=== PATIENT | female | born 1945 | race Caucasian/White ===

== ENCOUNTER 2021-12-21 00:10 | Inpatient (IN) | payer BC, MEDICAID ==
[~2021-12-21] VITALS: Ht 152.4 cm; Wt 68.7 kg
[2021-12-21 00:10] VITALS: BP 157/59
--- NOTE | 2021-12-21 00:11 | NUR ---
Patient placed on bed 12.
[2021-12-21 02:07] LABS: BASOPHILS % (AUTO) 0.5 % (0.0-2.0); EOSINOPHILS # (AUTO) 0.2 K/uL (0-0.4); EOSINOPHILS % (AUTO) 2.4 % (0.0-4.0); HEMATOCRIT 21.7 % (36-48); LYMPHOCYTES # (AUTO) 1.4 K/uL (2.5-16.5); LYMPHOCYTES % (AUTO) 16.6 % (20.5-51.1); MEAN CORPUSCULAR HEMOGLOBIN 29 pg (27-31); MEAN CORPUSCULAR HGB CONC 32 g/dL (33-37); MEAN CORPUSCULAR VOLUME 91.6 fL (80-94); MONOCYTES # (AUTO) 0.8 K/uL (0.8-1.0); MONOCYTES % (AUTO) 10.1 % (1.7-9.3); NEUTROPHILS # (AUTO) 5.8 K/uL (1.8-7.7); NEUTROPHILS % (AUTO) 70.4 % (42.2-75.2); PLATELET COUNT (AUTO) 206 K/uL (140-450); RED BLOOD CELL COUNT(AUTO) 2.37 MIL/uL (4.20-5.40); RED CELL DISTRIBUTION WIDTH 18.8 % (11.6-13.7); WHITE BLOOD COUNT (AUTO) 8.2 K/uL (4.8-10.8)
[2021-12-21 02:24] LABS: ALBUMIN 1.6 g/dL (3.4-5.0); ANION GAP 12.1 (8-16); ASPARTATE AMINOTRANSFERASE 24 U/L (15-37); CHLORIDE 98 mmol/L (98-107); GLUCOSE 213 mg/dL (74-106); POTASSIUM 3.1 mmol/L (3.5-5.1); SODIUM SERUM 138 mmol/L (136-145); TOTAL BILIRUBIN 0.9 mg/dL (0.0-1.0); UREA NITROGEN, BLOOD 64 mg/dL (7-18)
[2021-12-21 02:43] LABS: LIPASE 103 U/L (73-393)
[2021-12-21] MEDS ORDERED: KCL 20 MEQ/WATER INJ PREMIX 100 ML IV ONE (02:50)
[2021-12-21] MEDS ORDERED: ASPIRIN 325 MG TAB PO ONE (02:50)
--- NOTE | 2021-12-21 04:04 | NUR ---
PT VOID FREELY INTO DIAPER. PT CHANGED, CLEANED, AND NEW DIAPER APPLIED.
--- NOTE | 2021-12-21 04:54 | NUR ---
Patient will be admitted to care of DR. WALLER. Admited to TELEMETRY. Will go to room 107A. Belongings list completed. Report to
[2021-12-21 05:15] VITALS: BP 160/73
--- NOTE | 2021-12-21 06:15 | NUR ---
PT ARRIVED FROM UNIT VIA GURNEY. RECEIVED BEDSIDE REPORT FROM ER NURSE JING. PT A&O X 2, ON ROOM AIR. BREATHING EQUAL AND UNLABORED.NO RESPIRATORY DISTRESS NOTED. IV ON R FA G22, PATENT AND INTACT. DENIES PAIN.SKIN DRY, INTACT AND WARM TO TOUCH. AFIB 92 ON TELE. MRSA SWAB DONE. SAFETY PRECAUTIONS IN PLACE. BED IN LOW LOCKED POSITION. CALL LIGHT WITHIN REACH.WILL CONTINUE TO MONITOR.
[2021-12-21] MEDS ORDERED: ONDANSETRON 4 MG/2 ML VIAL IVP PRN (06:20)
--- NOTE | 2021-12-21 06:36 | NUR ---
PT IS STABLE.NO ACUTE DISTRESS THROUGHOUT THE NIGHT. ALL NEEDS MET. NO DISTRESS NOTED. ALL PRECAUTIONS IN PLACE. CALL LIGHT WITHIN REACH. WILL ENDORSE TO AM SHIFT NURSE.
[2021-12-21 07:22] LABS: CREATINE KINASE MB 1.2 ng/mL (0-3.6)
--- NOTE | 2021-12-21 07:30 | NUR ---
RECEIVED REPORT FROM DISPATCHER SHIP PILOT NURSE. AOX2, ON ROOM AIR. BREATHING EQUAL AND UNLABORED. NO RESPIRATORY DISTRESS NOTED. IV ON R FA G22, PATENT AND INTACT. DENIES PAIN. SKIN DRY, INTACT AND WARM TO TOUCH. AFIB ON TELE. SAFETY PRECAUTIONS IN PLACE. BED IN LOW LOCKED POSITION. CALL LIGHT WITHIN REACH.WILL CONTINUE TO MONITOR.
[2021-12-21 08:00] VITALS: BP 175/81
--- NOTE | 2021-12-21 08:50 | NUR ---
PATIENT HAS BEEN SCREENED AND CATEGORIZED MODERATE NUTRITION RISK. PATIENT WILL BE SEEN WITHIN 3-5 [address] OF ADMISSION. [address]
--- NOTE | 2021-12-21 09:00 | NUR ---
BP 175/81, NOTIFIED LISETTE ZABALA. ORDERED HCTZ 25MG PO ONCE
[2021-12-21] MEDS ORDERED: hydroCHLOROthiazide 25 MG TAB PO SCH (09:30)
[2021-12-21] MEDS: LORazepam 2 MG/ML VIAL IVP PRN (09:50)
--- NOTE | 2021-12-21 09:50 | NUR ---
PT RESTLESS AND CRYING, FAMILY AT BEDSIDE, ATIVAN GIVEN ORDERED
[2021-12-21] MEDS ORDERED: FURO-570 PO (10:23)
[2021-12-21] MEDS ORDERED: ATOR10TA PO (10:23)
[2021-12-21] MEDS ORDERED: HYDR-1098 PO (10:23)
[2021-12-21] MEDS ORDERED: APIX2.5 PO (10:23)
[2021-12-21] MEDS ORDERED: ZAR2.5 PO (10:23)
[2021-12-21] MEDS ORDERED: LINA5TAB PO (10:23)
[2021-12-21] MEDS ORDERED: FERR325E14 PO (10:23)
[2021-12-21] MEDS ORDERED: ALBU1.25 NEB (10:23)
[2021-12-21] MEDS ORDERED: INSU100S22 SUBQ (10:25)
--- NOTE | 2021-12-21 10:50 | NUR ---
PT RESTING IN BED, SEEN AND EXAMINED BY DR JAIME
[2021-12-21 12:00] VITALS: BP 155/65
[2021-12-21] MEDS ORDERED: ALBUTEROL SULFATE NEB SCH (12:00)
[2021-12-21] MEDS: BLOOD GLUCOSE MONITORING 1 DEV DEV FS SCH ×3 (12:20→21:31)
[2021-12-21] MEDS: INSULIN LISPRO SLIDING SCALE 100 UNITS/ML VIAL SUBQ PRN (12:20)
--- NOTE | 2021-12-21 12:30 | NUR ---
SEEN BY KAYKAY ZABALA
[2021-12-21] MEDS ORDERED: ALBUTEROL 0.083% 2.5 MG/3 ML NEBU INH SCH (13:00)
[2021-12-21] MEDS: hydrALAZINE 25 MG TAB PO SCH ×2 (13:01→16:58)
--- NOTE | 2021-12-21 13:30 | NUR ---
SEEN AND EXAMINED BY DR DOMÍNGUEZ
[2021-12-21 13:34] LABS: APPEARANCE,URINE HAZY (CLEAR); BILIRUBIN,URINE NEGATIVE (NEGATIVE); BLOOD, URINE 2+ (NEGATIVE); COLOR,URINE YELLOW (YELLOW); LEUKOCYTE ESTERASE ,URINE 2+ (NEGATIVE); NITRITE, URINE NEGATIVE (NEGATIVE); PH,URINE 6.5 (5.0-9.0); UGLUCOSE NEGATIVE (NEGATIVE)
[2021-12-21 13:51] LABS: WBC,URINE 0-5 /HPF (0-5)
[2021-12-21 13:52] LABS: TRICHOMONAS,URINE None Seen /HPF (None Seen); YEAST,URINE None Seen /HPF (None Seen)
[2021-12-21 13:53] LABS: CALCIUM OXALATE CRYSTALS,UR None Seen /HPF (None Seen); COARSE GRANULAR CASTS,URINE None Seen /LPF (None Seen); FINE GRANULAR CASTS,URINE None Seen /LPF (None Seen); HYALINE CASTS, URINE None Seen /LPF (None Seen); OTHER CASTS, URINE None Seen /LPF (None Seen); OTHER CRYSTALS,URINE None Seen /HPF (None Seen); RED BLOOD CELL CASTS,URINE None Seen /LPF (None Seen); TRIPLE PHOSPHATE CRYSTAL,UR None Seen /HPF (None Seen); URIC ACID CRYSTALS,URINE None Seen /HPF (None Seen); URINE AMORPHOUS URATE None Seen /HPF (None Seen); WAXY CASTS,URINE None Seen /LPF (None Seen)
--- NOTE | 2021-12-21 14:23 | NUR ---
ED MANAGER AT BEDSIDE. PT APPEARS COMFORTABLE, NO SOB, NO C/O PAIN
[2021-12-21] MEDS ORDERED: ALBUTEROL 0.083% 2.5 MG/3 ML NEBU INH PRN (14:35)
[2021-12-21 16:00] VITALS: BP 149/68
--- NOTE | 2021-12-21 16:20 | NUR ---
DC PLANNIN YRS OLD FEMALE PATIENT WAS ADMITTED FROM HOME WITH A DX OF CHEST PAIN PATIENT HAS A HX OF HTN, DM, CKD A-FIB AND UNSPECIFIED CHF. TROPONIN ON ADMISSION 82, 86 . CXR SHOWED LARGE CARDIAC SILHOUETTE , MILD PULMONARY VASCULAR CONGESTION. RAPID COVID TEST NEGATIVE. ADMINISTERED IV ABX ROCEPHIN AND CONTINUED HOME MEDS. CONSULTED WITH CARDIO AND NEPHRO. DC PLAN PER PATIENT RESPOND TO THE TREATMENT. Addendum: 12/22/21 at 1634 by Denia Arellano RN DC PLANNING: SEEN BY BRAND AMBASSADOR PROMOTIONAL MODEL DR CHRISTIN Rico RECOMMENDED PATIENT IS NOT A GOOD CANDIDATE FOR FURTHER CARDIAC INTERVENTION, MEDICAL MANAGEMENT ONLY, HEAVY MEDIA OPERATOR TO CONTINUE CURRENT MEDS. DR DOMÍNGUEZ RECOMMENDED HOSPICE. FAXED TO [facility], SPOKE WITH PATIENT'S AND SON NINA STATED THEY WANT TO SPEAK WITH THEIR PRIMARY PHYSICIAN. CM TO FOLLOW Addendum: 12/23/21 at 1112 by Denia Arellano RN DC PLANNING: CALLED PATIENT'S SON [phone] SPOKE WITH NINA DISCUSSED THE DC PLAN FOR HIS MOM PER NINA, FAMILY DON'T WANT HER TO BE HOSPICE, SHE HAS AN APPOINTMENT WITH ONCOLOGIST DR MCDANIEL ON [address] SPOKE WITH JAMES HAYNES UPDATED PT'S CLINICAL. CM TO FOLLOW Addendum: 12/27/21 at 1113 by Denia Arellano RN DC PLANNIN UNIT PRBC GIVEN H/H 7.2/22.3, CONTINUE IV ABX ROCEPHIN. CARDIO AND NEPHRO FOLLOWING. AWAITING FOR ONCOLOGIST DR EDUARDO 'S RECOMMENDATION. DC PLAN TO GO HOME WITH HOME HEALTH WHEN STABLE . CM TO FOLLOW Addendum: 12/27/21 at 1440 by Denia Arellano RN DC PLANNING: DR OLIVEROS IN THE UNIT, STATED DR EDUARDO WON'T COME TO SEE PATIENT BUT HE RECOMMENDS TO FOLLOW UP WITH OUT PATIENT ONCOLOGIST. DR OLIVEROS SPOKE WITH PT'S SON NINA , EXPLAINED PT'S CLINICALS AND RECOMMENDATIONS, ANSWERED ALL QUESTIONS AND CONCERNS. NINA VERBALIZED UNDERSTANDING AND AGREED WITH DC HOME. PATIENT WILL BE DISCHARGED HOME. CALLED [facility] AND LEFT MESSAGE. CM TO FOLLOW Addendum: 12/27/21 at 1504 by Denia Arellano RN DC PLANNING: IM LETTER DISCUSSED WITH PT'S SON NINA VERBALIZED UNDERSTANDING AND TELEPHONE CONSENT SIGNED.
--- NOTE | 2021-12-21 17:35 | NUR ---
PT ASLEEP IN BE AT THIS TIME, NO SOB, NO S/S OF PAIN
--- NOTE | 2021-12-21 18:20 | NUR ---
PT AWAKE, CONFUSED, WITH EPISODES OF YELLING AND CRYING. PT WOULD CALM DOWN WHEN SPOKEN TO
--- NOTE | 2021-12-21 19:30 | NUR ---
RECEIVED BEDSIDE REPORT FROM DAY SHIFT RN FOR CONTINUITY OF CARE. PT IS AWAKE IN BED. PT IS NOT IN ANY DISTRESS. BREATHING EVEN AND UNLABORED. COMMUNICATION BOARD UPDATED. CALL LIGHT WITHIN REACH. ALL SAFETY MEASURES TAKEN. WILL CONTINUE TO MONITOR THE PT.
[2021-12-21 20:00] VITALS: BP 116/83
[2021-12-21] MEDS ORDERED: NON-FORMULARY ITEM (Insulin Glargine,Hum.rec.anlog (Lantus Solostar) 15 UNIT) SUBQ SCH (21:00)
[2021-12-21] MEDS: INSULIN LANTUS 100 UNITS/ML 10 ML VIAL SUBQ SCH (21:48)
[2021-12-21] MEDS: ATORVASTATIN 20 MG TAB PO SCH (21:49)
[2021-12-21] MEDS: APIXABAN 2.5 MG TAB PO SCH (21:49)
--- NOTE | 2021-12-21 21:55 | NUR ---
PT REFUSED PO MEDICATION. PT SAID TO THROW THEM AWAY. PT IS VERY CONFUSED. PT COOPERATED WITH TAKING LANTUS. WILL CONTINUE TO MONITOR THE PT.
[2021-12-22] VITALS: BP 127/46
[2021-12-22] MEDS: LORazepam 2 MG/ML VIAL IVP PRN (01:40)
--- NOTE | 2021-12-22 01:45 | NUR ---
PT WAS AGITATED. ATIVAN GIVEN. PT IS NOT IN ANY ACUTE DISTRESS. ALL SAFETY MEASURES TAKEN. WILL CONTINUE TO MONITOR THE PT.
--- NOTE | 2021-12-22 02:49 | NUR ---
PT IS SLEEPING COMFORTABLY IN BED. PT IS NOT IN ANY DISTRESS. BREATHING EVEN AND UNLABORED. CALL LIGHT WITHIN REACH. ALL SAFETY MEASURES TAKEN. WILL CONTINUE TO MONITOR THE PT
[2021-12-22 04:00] VITALS: BP 124/46
[2021-12-22] MEDS: BLOOD GLUCOSE MONITORING 1 DEV DEV FS SCH ×4 (06:42→20:33)
[2021-12-22 06:47] LABS: CARBON DIOXIDE 32.7 mmol/L (21-32); CHLORIDE 102 mmol/L (98-107); GLUCOSE 87 mg/dL (74-106); POTASSIUM 3.7 mmol/L (3.5-5.1); SODIUM SERUM 141 mmol/L (136-145); UREA NITROGEN, BLOOD 60 mg/dL (7-18)
[2021-12-22 06:53] LABS: BASOPHILS % (AUTO) 0.2 % (0.0-2.0); EOSINOPHILS # (AUTO) 0.1 K/uL (0-0.4); HEMATOCRIT 22.7 % (36-48); HEMOGLOBIN 7.2 g/dL (12.0-16.0); LYMPHOCYTES # (AUTO) 1.2 K/uL (2.5-16.5); LYMPHOCYTES % (AUTO) 12.5 % (20.5-51.1); MEAN CORPUSCULAR HEMOGLOBIN 29 pg (27-31); MEAN CORPUSCULAR HGB CONC 32 g/dL (33-37); MEAN CORPUSCULAR VOLUME 92.2 fL (80-94); MONOCYTES % (AUTO) 10.3 % (1.7-9.3); NEUTROPHILS # (AUTO) 7.5 K/uL (1.8-7.7); PLATELET COUNT (AUTO) 224 K/uL (140-450); RED BLOOD CELL COUNT(AUTO) 2.46 MIL/uL (4.20-5.40); RED CELL DISTRIBUTION WIDTH 18.9 % (11.6-13.7); WHITE BLOOD COUNT (AUTO) 9.9 K/uL (4.8-10.8)
[2021-12-22 07:01] LABS: CREATINE KINASE MB 1.1 ng/mL (0-3.6)
[2021-12-22 07:04] LABS: MAGNESIUM 2.1 mg/dL (1.8-2.4); PHOSPHORUS 3.4 mg/dL (2.5-4.9)
[2021-12-22] MEDS ORDERED: cefTRIAXone 1,000 MG VIAL ONE (07:16)
--- NOTE | 2021-12-22 07:20 | NUR ---
RECEIVED REPORT FROM REFERRAL NURSE NURSE FOR CONTINUITY OF CARE. PATIENT IS ASLEEP WITH IV SITE AT RIGHT FOREARM LUANNE 22 SALINE LOCK.. PATIENT ON ROOM AIR NO DISTRESS NOTED. CALL LIGHT WITH IN EASY REACH. PUREWICK IN PLACE. PATIENT CONFUSION. CALL LIGHT WITH IN EASY REACH. ALL SAFETY PRECAUTIONS IN PLACE.
--- NOTE | 2021-12-22 07:20 | NUR ---
ENDORSED PT TO DAY SHIFT RN FOR CONTINUITY OF CARE. PT IS STABLE.
[2021-12-22 08:00] VITALS: BP 117/75
--- NOTE | 2021-12-22 08:15 | NUR ---
RECEIVED CRITICAL LEVEL FOR TROPONIN OF [address] WALLER AWAITING FOR RESPONSE.
[2021-12-22] MEDS: FERROUS SULFATE 325 MG TABEC PO SCH (08:51)
[2021-12-22] MEDS: hydrALAZINE 25 MG TAB PO SCH ×3 (08:51→17:00)
[2021-12-22] MEDS: APIXABAN 2.5 MG TAB PO SCH ×2 (08:52→21:00)
[2021-12-22] MEDS: ACETAMINOPHEN 325 MG TAB PO PRN (08:59)
--- NOTE | 2021-12-22 08:59 | NUR ---
PATIENT ASSISTED WITH MEAL ONLY ATE THE OATMEAL AND NOTED PAIN WHEN LEFT ARM MOVED GIVEN ALL DUE MEDICATION AND TYLENOL FOR PAIN TOLERATED WELL. ALL SAFETY MEASURE IN PLACE.
[2021-12-22] MEDS ORDERED: FUROSEMIDE 40 MG TAB PO SCH (09:00)
[2021-12-22] MEDS ORDERED: NON-FORMULARY ITEM (Linagliptin (Tradjenta) 1 TAB) PO SCH (09:00)
--- NOTE | 2021-12-22 11:16 | NUR ---
PATIENT ASLEEP BLOOD 133 NO COVERAGE GIVEN.
--- NOTE | 2021-12-22 11:24 | NUR ---
CALLED AND GAVE UPDATE ON PATIENT CONDITION. ALSO INFORM US THAT PATIENT WITH POSITIVE BLOOD CANCER DONE AT [facility].
[2021-12-22 12:00] VITALS: BP 123/68
--- NOTE | 2021-12-22 12:32 | NUR ---
TRIED TO FEED PATIENT BUT SHE REFUSED TO EAT EVEN WITH ENCOURAGEMENT. WILL OFFER AGAIN.
--- NOTE | 2021-12-22 13:12 | NUR ---
GIVEN HYDRALAZINE ORDER TOLERATED WELL. ENCOURAGE TO EAT HER LUNCH BUT REFUSED.
--- NOTE | 2021-12-22 14:19 | NUR ---
PATIENT ASLEEP NO DISTRESS NOTED OFFERED TO DRINK MORE FLUID BUT REFUSED.
[2021-12-22 16:00] VITALS: BP 106/58
--- NOTE | 2021-12-22 16:34 | NUR ---
DC PLANNING PATIENT IS A 76-YEAR-OLD FEMALE ADMITTED AT THE [facility]/ED ON 12/21/2021 DUE TO COMPLAINTS OF CHEST PAIN AND SHORTNESS OF BREATH. PATIENT HAS HISTORY OF HYPERTENSION, DIABETES MELLITUS, CHRONIC KIDNEY DISEASE, PAROXYSMAL ATRIAL FIBRILLATION, UNSPECIFIED,CHF AND DEMENTIA. SW MET WITH PATIENT AT BEDSIDE TO DISCUSS AND GATHER PATIENT'S COLLATERAL INFORMATION. PATIENT REPORTED LIVING AT HOME WITH HER DIMITRIS PASTRANA AND SON, PATIENT IS MOSTLY BEDRIDDEN PER HER REPORT, SHE HAS GOOD FAMILY SUPPORT AND HER EMERGENCY AND MEDICAL DECISION MAKERS ARE HER AND SON PATIENT STATED NOT HAVING ADVANCE DIRECTIVES AND WAS NOT INTERESTED ON GETTING INF. FORMS PROVIDED BY SW. PATIENT REPORTED NOT BEEN ACTIVE OR INDEPENDENT AT HOME, STATED THAT HER SON HELPS HER WITH HER ADLS. PATIENT ALSO REPORTED HAVING A WALKER AND WHEELCHAIR BUT NOT REALLY USING IT AT HOME. PATIENT STATED HAVING NO ISSUES GETTING OR TAKING ANY MEDICATIONS PRESCRIBED BY HER DOCTOR. PATIENT STATED THAT SHE GETS HER MEDICATIONS FROM THE [facility] NEAR HER HOME. SW EXPLAINED TO PATIENT THE NEED TO FOLLOW UP WITH AN APPOINTMENT WITHIN 5-7 DAYS WITH HER PCP AFTER DC, PATIENT AGREED AND STATED THAT HER SON WILL MAKE HER FOLLOW UP APPOINTMENT; WITH PRIMARY DOCTOR AFTER SHE DISCHARGES FROM [facility]. PATIENT STATED THAT HER SON WILL BE ASSISTING HER WITH TRANSPORTATION BACK HOME WHEN SHE IS READY FOR DISCHARGE. SW WILL FOLLOW UP WITH PATIENT NEEDED.
--- NOTE | 2021-12-22 17:13 | NUR ---
HOLD HYDRALAZINE BP 106/58 AND PATIENT NOT EATING. ONLY SIPPING FEW SIP OF WATER.
--- NOTE | 2021-12-22 17:40 | NUR ---
PATIENT WHEEL TO RADIOLOGY FOR ULTRASOUND.
--- NOTE | 2021-12-22 19:25 | NUR ---
GAVE REPORT TO JUTE BAG CUTTING MACHINE OPERATOR NURSE FOR CONTINUITY OF CARE. ALL SAFETY MEASURE IN PLACE.
--- NOTE | 2021-12-22 19:29 | NUR ---
RECEIVED BEDSIDE REPORT FROM DAY SHIFT RN FOR CONTINUITY OF CARE. PT IS SLEEPING COMFORTABLY IN BED. PT IS NOT IN ANY DISTRESS. BREATHING EVEN AND UNLABORED. CALL LIGHT WITHIN REACH. ALL SAFETY MEASURES TAKEN. WILL CONTINUE TO MONITOR THE PT.
[2021-12-22] MEDS: FUROSEMIDE 40 MG/4 ML VIAL IVP SCH (19:50)
[2021-12-22 20:00] VITALS: BP 145/70
[2021-12-22] MEDS: INSULIN LANTUS 100 UNITS/ML 10 ML VIAL SUBQ SCH (20:54)
[2021-12-22] MEDS: ATORVASTATIN 20 MG TAB PO SCH (20:57)
--- NOTE | 2021-12-22 21:10 | NUR ---
ALL DUE MEDS GIVEN. NO ADVERSE REACTION NOTED. WILL CONTINUE TO MONITOR THE PT.
[2021-12-23] VITALS: BP 156/73
--- NOTE | 2021-12-23 00:15 | NUR ---
PT IS SLEEPING IN BED COMFORTABLY. PT IS NOT IN ANY DISTRESS. CALL LIGHT WITHIN REACH. ALL SAFETY MEASURES TAKEN. WILL CONTINUE TO MONITOR THE PT.
--- NOTE | 2021-12-23 02:27 | NUR ---
PT IS SLEEPING IN BED COMFORTABLY. PT IS NOT IN ANY DISTRESS. CALL LIGHT WITHIN REACH. ALL SAFETY MEASURES TAKEN. WILL CONTINUE TO MONITOR THE PT.
[2021-12-23 04:00] VITALS: BP 157/73
[2021-12-23] MEDS: FUROSEMIDE 40 MG/4 ML VIAL IVP SCH ×4 (04:28→21:32)
--- NOTE | 2021-12-23 06:10 | NUR ---
ALL DUE MEDS GIVEN. NO ADVERSE REACTION NOTED. WILL CONTINUE TO MONITOR THE PT.
[2021-12-23] MEDS: BLOOD GLUCOSE MONITORING 1 DEV DEV FS SCH ×4 (07:04→21:14)
--- NOTE | 2021-12-23 07:04 | NUR ---
ENDORSED PT TO DAY SHIFT RN FOR CONTINUITY OF CARE. PT IS STABLE.
--- NOTE | 2021-12-23 07:05 | NUR ---
RECEIVED PT FORM SMT MACHINE OPERATOR NURSE FOR CONTINUITY OF CARE. PT IS AWAKE IN BED. RESPIRATIONS EVEN AND UNLABORED. NO DISTRESS NOTED. DENIES PAIN. A&O1 TO NAME. PT ON HEAT TREATMENT TECHNICIAN, CONTROLLED AT-FIB. SKIN IS INTACT, WARM AND DRY TO TOUCH. IV SITE ON RFA 22G, SL. CALL LIGHT WITHIN REACH. SAFETY MEASURES IN PLACE. WILL CONTINUE TO MONITOR.
[2021-12-23 08:00] VITALS: BP 139/83
[2021-12-23] MEDS: FERROUS SULFATE 325 MG TABEC PO SCH (08:40)
[2021-12-23] MEDS: hydrALAZINE 25 MG TAB PO SCH ×3 (08:41→16:55)
[2021-12-23] MEDS: ACETAMINOPHEN 325 MG TAB PO PRN (08:41)
[2021-12-23] MEDS: APIXABAN 2.5 MG TAB PO SCH ×2 (08:43→21:14)
--- NOTE | 2021-12-23 08:48 | NUR ---
ADMINISTERED ALL SCHEDULED MORNING MEDS. PT COMPLAINT OF PAIN ON LEFT HAND. PRN PAIN MED ADMINISTERED ORDERED. EXPLAIN MED TO THE PT. PT VERBALIZED UNDERSTANDING. SON AT BEDSIDE AT THIS TIME.
[2021-12-23] MEDS ORDERED: metOLazone 2.5 MG TAB PO SCH (09:00)
--- NOTE | 2021-12-23 10:52 | NUR ---
RECEIVED A CALL FROM SON NINA [phone]/[phone], REGARDING HIS MOM'S DISCHARGE PLAN AND REQUEST FOR A PHONE CALL FROM DR DOMÍNGUEZ FOR UPDATE REGARDING HIS MOM'S CONDITION AND PLAN OF CARE. COORDINATED WITH IVY AND DR DOMÍNGUEZ.
[2021-12-23 12:00] VITALS: BP 143/75
--- NOTE | 2021-12-23 14:24 | NUR ---
IV LINE PULLED OUT BY THE PT. INSERTED A NEW ONE ON RIGHT HAND G24. PT TOLERATED WELL. RN ADMINISTERED IVP LASIX. LEFT PT WITH THE PT.
[2021-12-23 16:00] VITALS: BP 132/53
--- NOTE | 2021-12-23 17:04 | NUR ---
BLOOD GLUCOSE CHECK DONE. BS 117. NO INSULIN COVERAGE NEEDED. RN ADMINISTERED IVP LASIX. PT TOLERATED WELL. WILL CONTINUE TO MONITOR.
--- NOTE | 2021-12-23 18:15 | NUR ---
DR DOMÍNGUEZ RESPONDED TO CHANGE ORDER OF IMANI TO MILAD.
--- NOTE | 2021-12-23 19:04 | NUR ---
ENDORSED PT TO GIS SPECIALIST NURSE FOR CONTINUITY OF CARE. ALL NEEDS MET THROUGHOUT SHIFT. PT IS STABLE.
--- NOTE | 2021-12-23 19:05 | NUR ---
RECEIVED ENDORSEMENT FROM ANA SANTORO FOR CONTINUITY OF CARE. PATIENT IS STABLE AND RESTING IN BED. A&0X1 WITH CONFUSION NOTED. FLACC 0. ON ROOM AIR WITH NO APPARENT S/SX OF ACUTE DISTRESS. RESPIRATIONS EVEN AND UNLABORED WITH NO APPARENT S/SX OF ACUTE DISTRESS. PATIENT'S SKIN INTACT. PATIENT IS ON BEDREST. PATIENT'S IV SITE IS RH 24G INTACT/PATENT SL. PLAN OF CARE AND WHITE COMMUNICATION BOARD UPDATED. ALL SAFETY MEASURES IN PLACE. BED IN LOW/LOCKED POSITION. WILL CONTINUE TO MONITOR.
[2021-12-23 20:00] VITALS: BP 139/67
--- NOTE | 2021-12-23 20:00 | NUR ---
REVIEWED PLAN OF CARE WITH MARI CARTAGENAE1
--- NOTE | 2021-12-23 21:00 | NUR ---
ADMINISTERED SCHEDULED PO MEDICATIONS PER MD ORDER. TOLERATED WELL. IVP MEDICATION ENDORSED TO ASHWIN DE JESUS FOR COVERAGE. DENIES PAIN. RESPIRATIONS EVEN AND UNLABORED WITH NO APPARENT S/SX OF ACUTE DISTRESS. CHANGED PATIENT'S GOWN AND BLANKETS. OFFERED SNACK BUT PATIENT DECLINED. PATIENT STATES SHE IS NOT FEELING HUNGRY. WHITE COMMUNICATION BOARD UPDATED. ALL SAFETY MEASURES IN PLACE. BED IN LOW/LOCKED POSITION. CALL LIGHT WITHIN REACH. WILL CONTINUE TO MONITOR.
[2021-12-23] MEDS: INSULIN LANTUS 100 UNITS/ML 10 ML VIAL SUBQ SCH (21:15)
[2021-12-23] MEDS: ATORVASTATIN 20 MG TAB PO SCH (21:15)
--- NOTE | 2021-12-23 23:05 | NUR ---
ANSWERED CALL LIGHT. CLEANED AND CHANGED PATIENT WITH DEMETRI BILLINGS. TOLERATED WELL. DENIES PAIN. RESPIRATIONS EVEN AND UNLABORED WITH NO APPARENT S/SX OF ACUTE DISTRESS. WHITE COMMUNICATION BOARD UPDATED. ALL SAFETY MEASURES IN PLACE. CALL LIGHT WITHIN REACH. WILL CONTINUE TO MONITOR.
[2021-12-24] VITALS: BP 151/71
[2021-12-24] MEDS: HYDROcodone/APAP 5/325 MG 1 TAB TAB PO PRN ×2 (00:05→13:12)
[2021-12-24] MEDS: LORazepam 2 MG/ML VIAL IVP PRN (00:48)
[2021-12-24] MEDS ORDERED: MORPHINE SULFATE 2 MG/ML SYR IVP PRN (01:00)
--- NOTE | 2021-12-24 01:05 | NUR ---
PATIENT APPEARS TO BE RESTLESS FROM LEFT ARM PAIN. FLACC 03/29. CONTACTED DR. DOMÍNGUEZ FOR PRN MORPHINE SULFATE. DR. DOMÍNGUEZ APPROVED. IV MORPHINE SULFATE ENDORSED TO ASHWIN DE JESUS FOR COVERAGE. COMFORTED PATIENT BY STAYING AT BEDSIDE UNTIL PRN GIVEN. RESPIRATIONS EVEN AND UNLABORED WITH NO APPARENT S/SX OF ACUTE DISTRESS. WHITE COMMUNICATION BOARD UPDATED. ALL SAFETY MEASURES IN PLACE. CALL LIGHT WITHIN REACH. WILL CONTINUE TO MONITOR.
--- NOTE | 2021-12-24 03:05 | NUR ---
PATIENT IS STABLE AND ASLEEP. CHEST IS RISING AND FALLING EVENLY. RESPIRATIONS EVEN AND UNLABORED WITH NO APPARENT S/SX OF ACUTE DISTRESS. WHITE COMMUNICATION BOARD UPDATED. ALL SAFETY MEASURES IN PLACE. CALL LIGHT WITHIN REACH. WILL CONTINUE TO MONITOR.
[2021-12-24 04:00] VITALS: BP 152/92
--- NOTE | 2021-12-24 05:05 | NUR ---
PATIENT IS STABLE AND ASLEEP IN BED. CHEST IS RISING AND FALLING EVENLY. RESPIRATIONS EVEN AND UNLABORED WITH NO APPARENT S/SX OF ACUTE DISTRESS. ALL NEEDS MET. WHITE COMMUNICATION BOARD UPDATED. ALL SAFETY MEASURES IN PLACE. BED IN LOW/LOCKED POSITION. CALL LIGHT WITHIN REACH. WILL CONTINUE TO MONITOR.
--- NOTE | 2021-12-24 06:00 | NUR ---
PATIENT'S BLOOD SUGAR IS 55 MG/DL. GAVE PATIENT 1 CUP OF APPLE JUICE. PATIENT IS ASYMPTOMATIC FOR HYPOGLYCEMIA. WILL REASSESS BLOOD SUGAR IN 15 MINUTES.
--- NOTE | 2021-12-24 06:15 | NUR ---
PATIENT'S BLOOD SUGAR INCREASED TO 90 MG/DL. PATIENT REMAINS ASYMPTOMATIC FOR HYPOGLYCEMIA. WILL CONTINUE TO MONITOR.
[2021-12-24] MEDS: BLOOD GLUCOSE MONITORING 1 DEV DEV FS SCH ×4 (06:32→22:30)
--- NOTE | 2021-12-24 07:05 | NUR ---
ENDORSED PATIENT TO ANA SANTORO FOR CONTINUITY OF CARE. PATIENT IS STABLE.
--- NOTE | 2021-12-24 07:06 | NUR ---
RECEIVED PT FROM ELEMENTARY SCHOOL DIRECTOR NURSE FOR CONTINUITY OF CARE. PT IS AWAKE AT THIS TIME, WANTS TO GET OUT OF BED BUT REINFORCED USING HER DIAPER AND WILL JUST CLEAN AFTERWARDS. PT WAS CALM AFTERWARDS. PT'S RESPIRATIONS EVEN AND UNLABORED ON ROOM AIR. NO SIGNS OF DISTRESS NOTED. PT ON CORPORATE AUDITOR. IV SITE AT RIGHT HAND G22, SALINE LOCK. CALL LIGHT WITHIN REACH. SAFETY PRECAUTIONS IN PLACE. WILL CONTINUE TO MONITOR.
--- NOTE | 2021-12-24 07:10 | NUR ---
ENDORSED PT TO HATCHERY HELPER NURSE FOR CONTINUITY OF CARE. ALL NEEDS MET THROUGHOUT SHIFT. PT IS STABLE. Addendum: 12/24/21 at 1947 by Fernanda De La O LVN ERROR
[2021-12-24 08:00] VITALS: BP 163/64
[2021-12-24] MEDS: FUROSEMIDE 40 MG/4 ML VIAL IVP SCH ×2 (09:00→22:30)
--- NOTE | 2021-12-24 09:00 | NUR ---
RADIOLOGY STAFF AT BEDSIDE FOR CHEST X-RAY. PT TOLERATED WELL. WILL CONTINUE TO MONITOR.
--- NOTE | 2021-12-24 09:00 | NUR ---
PT'S DAUGHTER IN LAW AT BEDSIDE. PT NEEDS TO BE CLEANED. DAUGHTER IN LAW STEP OUT AND ASSISTED OIL WINTERIZER IN CLEANING PT. GAVE PT ALL SCHEDULED MORNING MEDS. EXPLAINED TO THE PT HER MEDS. PT VERBALIZED UNDERSTANDING. RN GAVE IVP LASIX. PT TOLERATED WELL. WILL CONTINUE TO MONITOR.
--- NOTE | 2021-12-24 10:22 | NUR ---
DR ORELLANA AT BEDSIDE, WAS ABLE TO TALK TO THE DAUGHTER IN LAW ABOUT THE PT.
[2021-12-24] MEDS: APIXABAN 2.5 MG TAB PO SCH ×2 (10:25→21:00)
[2021-12-24] MEDS: hydrALAZINE 25 MG TAB PO SCH ×3 (10:29→17:42)
[2021-12-24] MEDS: FERROUS SULFATE 325 MG TABEC PO SCH (10:29)
--- NOTE | 2021-12-24 10:30 | NUR ---
DR. DOMÍNGUEZ AT BEDSIDE, WAS ABLE TO SPEAK TO THE DAUGHTER IN LAW. PER DR. DOMÍNGUEZ, HE WAS ABLE TO SPEAK TO NINA, PT'S SON. DAUGHTER IN LAW CAN SPEAK TO NINA FOR SOME ADDT'L UPDATES.
[2021-12-24 12:00] VITALS: BP 144/68
--- NOTE | 2021-12-24 12:20 | NUR ---
BLOOD GLUCOSE CHECK DONE BS 108.
--- NOTE | 2021-12-24 13:15 | NUR ---
CHANGED PT'S DIAPER WITH MANAGER LOCATION. PT. TOLERATED WELL. PT COMPLAINTS OF PAIN 01/27. PRN PAIN MEDS ADMINISTERED ORDERED.
[2021-12-24 16:00] VITALS: BP 143/57
--- NOTE | 2021-12-24 16:45 | NUR ---
BLOOD SUGAR CHECK DONE. BS 138.
--- NOTE | 2021-12-24 17:40 | NUR ---
IV PULLED OUT BY PT WHILE SLEEPING. ATTEMPTED 2X TO INSERT NEW IV LINE BUT UNSUCCESSFUL. ER NURSE CAME TO INSERT A NEW IV LINE, SUCCESSFUL AT LEFT WRIST 20G. PT TOLERATED WELL. NO DISTRESS NOTED. LEFT PT CALM, DRY AND CLEAN, LYING IN BED. CALL LIGHT WITHIN REACH. SAFETY MEASURES IN PLACE.
--- NOTE | 2021-12-24 19:10 | NUR ---
ENDORSED PT TO PROMOTIONAL REPRESENTATIVE NURSE FOR CONTINUITY OF CARE. ALL NEEDS MET THROUGHOUT SHIFT. PT IS STABLE.
[2021-12-24 20:00] VITALS: BP 102/52
--- NOTE | 2021-12-24 20:30 | NUR ---
agitates , trying to get up - refused all meds - if agitatation become worse - will medicate .
[2021-12-24] MEDS: ATORVASTATIN 20 MG TAB PO SCH (21:00)
[2021-12-24] MEDS: INSULIN LANTUS 100 UNITS/ML 10 ML VIAL SUBQ SCH (21:00)
[2021-12-25] VITALS: BP 120/60
--- NOTE | 2021-12-25 | NUR ---
rounds , sleeping but easily awakeable by sounds , will cont. to monitor .
[2021-12-25] MEDS: HYDROcodone/APAP 5/325 MG 1 TAB TAB PO PRN (01:08)
[2021-12-25 04:00] VITALS: BP 130/59
--- NOTE | 2021-12-25 04:00 | NUR ---
no distress noted - on tele monitor .
--- NOTE | 2021-12-25 06:00 | NUR ---
awake , pulled out iv needle - needle intact , min. bleeding - will re insert new one . Addendum: 12/25/21 at 0746 by Lety Dent RN inserted g24 at r 4th finger - min. bleeding , procedure tolerated well .
--- NOTE | 2021-12-25 07:29 | NUR ---
endorsed - pt - stable .
--- NOTE | 2021-12-25 07:30 | NUR ---
RECEIVED PATIENT LAYING IN BED AWAKE AND DISORIENTED. PATIENT CAME IN WITH A CHIEF COMPLAINT OF CHEST PAIN AND SOB. PATIENT WITH ELEVATED BNP AND TROPONIN WHEN SHE ARRIVED. PATIENT WITH A-FIB. ROOM AIR LUNGS CLEAR. ABDOMEN SOFT AND NONTENDER. BOWEL SOUNDS NORMAL ACTIVE. PATIENT CURRENTLY HAS UTI ON IV ANTIBIOTICS. INCONTINENT BLADDER AND BOWEL. SMALL SKIN TEAR ON BACK. NON AMBULATORY FULL ASSIST. PATIENT ON CARDIAC DIET AND 1 ON 1 FEEDER. WILL CONTINUE TO MONITOR, CALL LIGHT WITH IN REACH AND BED AT LOWEST POSITION AND LOCKED.
[2021-12-25] MEDS: BLOOD GLUCOSE MONITORING 1 DEV DEV FS SCH ×4 (07:38→20:43)
[2021-12-25 08:00] VITALS: BP 187/66
[2021-12-25] MEDS: FUROSEMIDE 40 MG/4 ML VIAL IVP SCH ×2 (08:44→22:00)
[2021-12-25] MEDS: FERROUS SULFATE 325 MG TABEC PO SCH (08:44)
[2021-12-25] MEDS: hydrALAZINE 25 MG TAB PO SCH ×3 (08:44→17:54)
[2021-12-25] MEDS: APIXABAN 2.5 MG TAB PO SCH ×2 (08:45→21:01)
--- NOTE | 2021-12-25 09:00 | NUR ---
LASIX SPILL NEW MEDICATION REMOVED FROM MACHINE, PATIENT WITHOUT IV ACCESS PULLED OUT.
[2021-12-25 10:40] LABS: ANION GAP 11.5 (8-16); CARBON DIOXIDE 32.9 mmol/L (21-32); CHLORIDE 97 mmol/L (98-107); CREATININE 2.3 mg/dL (0.6-1.3); GLUCOSE 183 mg/dL (74-106); POTASSIUM 3.4 mmol/L (3.5-5.1); SODIUM SERUM 138 mmol/L (136-145); UREA NITROGEN, BLOOD 60 mg/dL (7-18)
[2021-12-25 12:00] VITALS: BP 154/71
[2021-12-25] MEDS: INSULIN LISPRO SLIDING SCALE 100 UNITS/ML VIAL SUBQ PRN ×3 (12:59→20:49)
--- NOTE | 2021-12-25 14:57 | NUR ---
2RD INITIAL ASSESSMENT COMPLETED. PLEASE REFER TO NUTRITION ASSESSMENT UNDER CARE ACTIVITY FOR ESTIMATED NUTRITIONAL NEEDS. RECOMMEND CONTINUING WITH CARDIAC DIET. RECOMMEND GLUCERNA TID FOR NUTRITIONAL NEEDS. RD TO FOLLOW-UP IN 3-5 DAYS PATIENT IS MODERATE RISK. ILYA CALIX RD
[2021-12-25 16:00] VITALS: BP 110/44
[2021-12-25 20:00] VITALS: BP 105/60
[2021-12-25] MEDS: INSULIN LANTUS 100 UNITS/ML 10 ML VIAL SUBQ SCH (20:58)
[2021-12-25] MEDS: ATORVASTATIN 20 MG TAB PO SCH (21:00)
--- NOTE | 2021-12-25 23:58 | NUR ---
DR. DOMÍNGUEZ RESPONDED TO MY REFERRAL TO HIM - PT SERUM K+ IS 3.4 - PER T.O K DUR 40 MEQ /TABS P.O X1 DOSE - WILL CARRY OUT .
[2021-12-26] MEDS ORDERED: POTASSIUM CHLORIDE 10 MEQ TABER PO SCH
--- NOTE | 2021-12-26 | NUR ---
SHOWING AGITATION , LABILE MOODS /CONFUSSION , TRY TO GET UP FROM THE BED - IF AGITATION BECOME WORST - WILL MEDICATE ORDERED .
--- NOTE | 2021-12-26 01:30 | NUR ---
INCREASING AGITATION , USING "F " WORDS , UNCOOPERATIVE . , ON TELE MONITOR , O2 SAT 96 % TO 97 % - WILL MEDICATE
[2021-12-26] MEDS: LORazepam 2 MG/ML VIAL IVP PRN (02:00)
--- NOTE | 2021-12-26 02:00 | NUR ---
BP 128 / 67 , HR 98 , O2 SAT 97 5 - ATIVAN TIV GIVEN ORDERED , WILL CONT. TO MONITOR .
[2021-12-26 02:43] VITALS: BP 128/70
--- NOTE | 2021-12-26 04:00 | NUR ---
FOUND CRYING , POINTED THE LEFT ARM - I ASKING IF HURTS - PT'S NODDED - WILL MEDICATE FOR PAIN - , THE BIGGER L KNEE IS BIGGER THE THE R KNEE - SEEMS INFLAMED - WILL MEDICATE - BP 130 / 79 , ON TELE MONITOR , O2 SAT 96 % - WILL CONT. TO MONITOR .
[2021-12-26] MEDS: HYDROcodone/APAP 5/325 MG 1 TAB TAB PO PRN (04:15)
--- NOTE | 2021-12-26 06:00 | NUR ---
SLEEPING , ON TELE MONITOR .
--- NOTE | 2021-12-26 07:28 | NUR ---
ENDORSED - PT - STABLE .
[2021-12-26] MEDS: BLOOD GLUCOSE MONITORING 1 DEV DEV FS SCH ×4 (07:36→20:37)
--- NOTE | 2021-12-26 07:56 | NUR ---
BS 123
[2021-12-26 08:00] VITALS: BP 146/74
--- NOTE | 2021-12-26 08:15 | NUR ---
RECEIVED PATIENT, AOX1, ATRIAL FIBRILLATION RATE CONTROLLED, RESPIRATIONS EVEN AND UNLABORED ON ROOM AIR. PATIENT TOLERATED BREAKFAST WELL WITH NO NAUSEA/VOMITING. REPORTS MILD PAIN IN LEFT UPPER EXTREMITY. CLEANED AND REPOSITIONED PATIENT. RIGHT BUTTOCK WOUND NOTED, CLEANED AND APPLIED ISLAND DRESSING. REORIENTATION PROVIDED TO PATIENT. NEW IV PLACED TO RIGHT WRIST. WILL CONTINUE TO MONITOR.
[2021-12-26 08:28] LABS: BASOPHILS % (AUTO) 0.3 % (0.0-2.0); EOSINOPHILS # (AUTO) 0.2 K/uL (0-0.4); EOSINOPHILS % (AUTO) 1.8 % (0.0-4.0); HEMATOCRIT 20.9 % (36-48); LYMPHOCYTES % (AUTO) 18.9 % (20.5-51.1); MEAN CORPUSCULAR HEMOGLOBIN 30 pg (27-31); MEAN CORPUSCULAR HGB CONC 32 g/dL (33-37); MEAN CORPUSCULAR VOLUME 91.6 fL (80-94); MONOCYTES % (AUTO) 9.6 % (1.7-9.3); NEUTROPHILS # (AUTO) 7.3 K/uL (1.8-7.7); NEUTROPHILS % (AUTO) 69.4 % (42.2-75.2); PLATELET COUNT (AUTO) 213 K/uL (140-450); RED BLOOD CELL COUNT(AUTO) 2.28 MIL/uL (4.20-5.40); WHITE BLOOD COUNT (AUTO) 10.5 K/uL (4.8-10.8)
[2021-12-26 08:35] LABS: HEMOGLOBIN 6.7 g/dL (12.0-16.0)
--- NOTE | 2021-12-26 08:47 | NUR ---
NOTIFIED DR DOMÍNGUEZ REGARDING PATIENT'S HGB 6.7
[2021-12-26] MEDS: hydrALAZINE 25 MG TAB PO SCH ×3 (09:03→16:49)
[2021-12-26] MEDS: FERROUS SULFATE 325 MG TABEC PO SCH (09:03)
[2021-12-26] MEDS: FUROSEMIDE 40 MG/4 ML VIAL IVP SCH (09:04)
[2021-12-26] MEDS: APIXABAN 2.5 MG TAB PO SCH ×2 (09:18→20:31)
--- NOTE | 2021-12-26 10:48 | NUR ---
CALLED AND UPDATED SON, NINA PASTRANA ON PLAN OF CARE. OBTAINED TELEPHONE CONSENT FOR BLOOD TRANSFUSION.
--- NOTE | 2021-12-26 11:22 | NUR ---
PT. WITH LOW PAU SCALE AT MODERATE TO HIGH RISK, CONTINUE TO FOLLOW PRESSURE INJURY PREVENTION INTERVENTIONS. PT. ADMITTED WITH MOISTURE ASSOCIATED DERMATITIS TO BUTTOCKS, SMALL EROSIONS SUPERFICIAL DEPTH. LEFT UPPER EXTREMITIES +2 EDEMA SKIN THIN EASILY TO TORN.PT. IS AWAKE, AAX3, POC DISCUSSED. NEED REINFORCEMENT. -CLEANSE WITH MILD SOAP AND WATER, PAT DRY,APPLY THIN LAYER OF Z GUARD TO BUTTOCKS AND PERINEUM BID AND PRN IF SOILING -POSITIONING: TURN AND REPOSITION PATIENT Q 2H OR SOONER USE PILLOWS TO KEEP BONY PROMINENCES FROM DIRECT CONTACT WITH SURFACES USE REPOSITIONING WEDGES TO PROVIDE 30-DEGREE ANGLE FOR SIDE LYING POSITIONS OFFLOADING OR FOAM DRESSING TO ALL TUBING TO PREVENT MEDICAL DEVICES RELATED PRESSURE INJURY -RE-EVALUATING AND MANAGING INCONTINENCE MONITOR SKIN CONDITION DURING POSITION CHANGE DO NOT MASSAGE REDNESS, BONY PROMINENCES FREQUENT LEWIS-CARE AND PROVIDE BARRIER CREAMS PRN IF SOILING MOISTURE CONTROL BY OFFER BED STEWARD/URINAL /ABSORBENT PAD TO WICK AND HOLD MOISTURE KEEP SKIN DRY AND PROTECT FROM FRICTION -MANAGE FRICTION/SHEAR/MOBILITY KEEP HOB AT THE LOWEST LEVEL OF ELEVATION NO MORE THAN 30 DEGREE UNLESS OTHERWISE CONTRAINDICATED USE LIFT SHEET OR TRANSFER DEVICE TO MOVE PATIENT AND PREVENT LATERAL SHEER. PROTECT HEELS, ELBOWS BONY PROMINENCES WITH SKIN BERRIES OR FOAM DRESSING IF EXPOSED TO FRICTION OFFLOAD BILATERAL HEELS BY PLACING PILLOWS UNDER CALVES AT ALL TIMES, UNLESS OTHERWISE CONTRAINDICATED -PRESSURE REDISTRIBUTION SURFACE THERAPY BERNARDO ISOFLEX MATTRESS -NUTRITION: PLEASE FOLLOW RD RECOMMENDATIONS AND OFFER NUTRITION SUPPLEMENTS IF ORDERED. PLEASE CONTACT WOUND CARE NURSE FOR ANY QUESTION AND CHANGE OF WOUND CONDITION.
[2021-12-26 12:00] VITALS: BP 145/89
[2021-12-26] MEDS: INSULIN LISPRO SLIDING SCALE 100 UNITS/ML VIAL SUBQ PRN ×3 (12:17→20:40)
[2021-12-26] MEDS: Z-GUARD PASTE TP SCH (12:20)
[2021-12-26] MEDS ORDERED: HYDRAGUARD CREAM TP SCH (13:00)
--- NOTE | 2021-12-26 13:01 | NUR ---
BLOOD TRANSFUSION STARTED. VITAL SIGNS STABLE. PATIENT IS SITTING UPRIGHT IN BED EATING LUNCH. DENIES ANY PAIN/DISCOMFORT.
--- NOTE | 2021-12-26 13:56 | NUR ---
BLOOD TRANSFUSION INFUSING, PATIENT TOLERATING WELL. NO SIGNS OF DISTRESS, VITAL SIGNS STABLE.
--- NOTE | 2021-12-26 15:42 | NUR ---
BLOOD TRANSFUSION FINISHED. NO SIGNS OF TRANSFUSION REACTION NOTED. VITAL SIGNS STABLE. PATIENT RESTING COMFORTABLY IN BED.
[2021-12-26 16:00] VITALS: BP 135/68
--- NOTE | 2021-12-26 18:45 | NUR ---
PATIENT IS UP EATING DINNER TOLERATING WELL, NO ACUTE COMPLAINTS. WILL ENDORSE TO NIGHT RN.
--- NOTE | 2021-12-26 19:15 | NUR ---
RECEIVED REPORT FROM AM NURSE. PATIENT AWAKE, WELL RESTED. ON ROOM AIR. NO ACUTE DISTRESS NOTED. RESPIRATION EVEN UNLABORED. DENIES PAIN. ALL SAFETY PRECAUTIONS ARE IN PLACE. CALL LIGHT WITHIN REACH
[2021-12-26 20:00] VITALS: BP 148/84
[2021-12-26] MEDS: ATORVASTATIN 20 MG TAB PO SCH (20:33)
[2021-12-26] MEDS: INSULIN LANTUS 100 UNITS/ML 10 ML VIAL SUBQ SCH (20:40)
[2021-12-26] MEDS ORDERED: FUROSEMIDE 20 MG/2 ML VIAL IVP SCH (21:00)
[2021-12-27] VITALS: BP 138/95
[2021-12-27] MEDS: Z-GUARD PASTE TP SCH ×2 (01:00→13:01)
[2021-12-27] MEDS: HYDROcodone/APAP 5/325 MG 1 TAB TAB PO PRN (03:19)
--- NOTE | 2021-12-27 03:19 | NUR ---
PATIENT COMPLAINED OF MODERATE LEFT ARM PAIN, MEDICATED WITH NORCO.
[2021-12-27 04:00] VITALS: BP_SYST 138; BP_SYST 140; BP_DIAS 75; BP_DIAS 95
[2021-12-27 06:48] LABS: BASOPHILS % (AUTO) 0.1 % (0.0-2.0); EOSINOPHILS # (AUTO) 0.2 K/uL (0-0.4); EOSINOPHILS % (AUTO) 1.9 % (0.0-4.0); HEMATOCRIT 22.3 % (36-48); HEMOGLOBIN 7.2 g/dL (12.0-16.0); LYMPHOCYTES # (AUTO) 1.3 K/uL (2.5-16.5); LYMPHOCYTES % (AUTO) 13.1 % (20.5-51.1); MEAN CORPUSCULAR HEMOGLOBIN 30 pg (27-31); MEAN CORPUSCULAR HGB CONC 32 g/dL (33-37); MEAN CORPUSCULAR VOLUME 92.6 fL (80-94); MONOCYTES # (AUTO) 0.9 K/uL (0.8-1.0); MONOCYTES % (AUTO) 9.1 % (1.7-9.3); NEUTROPHILS # (AUTO) 7.5 K/uL (1.8-7.7); NEUTROPHILS % (AUTO) 75.8 % (42.2-75.2); PLATELET COUNT (AUTO) 191 K/uL (140-450); RED BLOOD CELL COUNT(AUTO) 2.41 MIL/uL (4.20-5.40); RED CELL DISTRIBUTION WIDTH 17.9 % (11.6-13.7); WHITE BLOOD COUNT (AUTO) 9.9 K/uL (4.8-10.8)
[2021-12-27] MEDS: BLOOD GLUCOSE MONITORING 1 DEV DEV FS SCH ×2 (07:11→11:16)
--- NOTE | 2021-12-27 07:11 | NUR ---
BLOOD SUGAR WAS 111, NO INSULIN COVERAGE NEEDED.
--- NOTE | 2021-12-27 07:34 | NUR ---
RECEIVED REPORT FROM PUSH BUTTON SWITCH ASSEMBLER NURSE FOR CONTINUITY OF CARE. PATIENT AWAKE ABLE TO RESPONDS VERBALLY NOTED WITH CONFUSION. RESPIRATION EVEN AND NOT LABORED ON ROOM AIR. IV SITE ON RIGHT WRIST LUANNE 20 AND RIGHT HAND 24. DENIES PAIN AT THIS TIME. ALL SAFETY MEASURE IN PLACE.
--- NOTE | 2021-12-27 07:34 | NUR ---
ENDORSED PATIENT TO AM NURSE FOR CONTINUITY OF CARE. PT IS STABLE.
[2021-12-27 08:00] VITALS: BP 135/83
[2021-12-27] MEDS: hydrALAZINE 25 MG TAB PO SCH ×2 (08:41→12:22)
[2021-12-27] MEDS: FERROUS SULFATE 325 MG TABEC PO SCH (08:41)
[2021-12-27] MEDS: APIXABAN 2.5 MG TAB PO SCH (08:43)
--- NOTE | 2021-12-27 08:53 | NUR ---
PATIENT ASSISTED WITH HER BREAKFAST ATE ONLY THE OATMEAL AND DRINK SOME MILK. GIVEN THE MORNING MEDICATION TOLERATED WELL. CALL LIGHT WITH IN EASY REACH.
[2021-12-27] MEDS ORDERED: FUROSEMIDE 20 MG/2 ML VIAL IVP SCH (09:00)
[2021-12-27] MEDS: INSULIN LISPRO SLIDING SCALE 100 UNITS/ML VIAL SUBQ PRN (11:17)
--- NOTE | 2021-12-27 11:28 | NUR ---
PATIENT AWAKE BLOOD SUGAR CHECKED GIVEN COVERAGE FOR BLOOD SUGAR 163. CALL LIGHT WITH IN EASY REACH.
[2021-12-27 12:00] VITALS: BP 152/85
--- NOTE | 2021-12-27 12:33 | NUR ---
PATIENT ASSISTED WITH MEAL AND GIVEN APRESOLINE ORDER TOLERATED WELL.
[2021-12-27 14:50] VITALS: BP 135/75
[2021-12-27] MEDS: ACETAMINOPHEN 325 MG TAB PO PRN (15:00)
--- NOTE | 2021-12-27 15:45 | NUR ---
PATIENT ALERT DAUGHTER AT BED SIDE GIVEN DISCHARGE PACKET WITH INSTRUCTION VERBALIZED UNDERSTANDING. REMOVED IV LINE WITH CATHETER INTACT. REMOVED NAME BAND. PATIENT WHEELED TO THEIR PRIVATE CAR ON STABLE CONDITION.
== END 2021-12-27 15:45 | disposition home health service (06) | DRG 280 ==
LOC: MED 00:10 → MTU 04:54 → OBSVTOIN 12-22 16:12
PROVIDERS: ADMIT Internal Medicine; ATTEND Internal Medicine
PROC: 30233N1 Transfusion of Nonautologous Red Blood Cells into Peripheral Vein, Percutaneous Approach (ICD-10-PCS; principal; 2021-12-26)
DX: I13.0 Hypertensive heart and chronic kidney disease with heart failure and stage 1 through stage 4 chronic kidney disease, or unspecified chronic kidney disease (principal); E43 Unspecified severe protein-calorie malnutrition; I21.A1 Myocardial infarction type 2; I50.33 Acute on chronic diastolic (congestive) heart failure; N39.0 Urinary tract infection, site not specified; N18.4 Chronic kidney disease, stage 4 (severe); N17.9 Acute kidney failure, unspecified; C90.00 Multiple myeloma not having achieved remission; R65.10 Systemic inflammatory response syndrome (SIRS) of non-infectious origin without acute organ dysfunction; F03.90 Unspecified dementia, unspecified severity, without behavioral disturbance, psychotic disturbance, mood disturbance, and anxiety; I07.1 Rheumatic tricuspid insufficiency; I42.9 Cardiomyopathy, unspecified; Z20.822 Contact with and (suspected) exposure to COVID-19; E87.6 Hypokalemia; D64.9 Anemia, unspecified; E11.22 Type 2 diabetes mellitus with diabetic chronic kidney disease; M48.061 Spinal stenosis, lumbar region without neurogenic claudication; I48.0 Paroxysmal atrial fibrillation; Z74.01 Bed confinement status; Z79.01 Long term (current) use of anticoagulants; Z79.4 Long term (current) use of insulin; Z79.899 Other long term (current) drug therapy; Z82.49 Family history of ischemic heart disease and other diseases of the circulatory system; Z90.49 Acquired absence of other specified parts of digestive tract; Z68.29 Body mass index [BMI] 29.0-29.9, adult
CPT/HCPCS: 96360; 99285; G0378; 36415; 71045; 72128; 72131; 76770; 80048; 80053; 81001; 82550; 82553; 82607; 82746; 82948; 83540; 83690; 83735; 83880; 84100; 84484; 85025; 86886; 86900; 86901; 86920; 87081; 87086; 93005; 97110; 97112; 97163-GP; 97530; J0696; J1815; J1940; J2060; J2270; J3480; J7060; P9016; Q0092